=== PATIENT | female | born 1945 | race Caucasian/White ===

== ENCOUNTER 2018-04-01 19:06 | Emergency (ER) | payer MEDICARE, BC ==
[2018-04-01 19:34] VITALS: BP 144/82; PULSE 71; RESP 18; TEMP 98.5
[2018-04-01] MEDS ORDERED: DIPH,PERTUS(ACELL)TETVAC-LF 0.5 ML VIAL IM ONE (19:42)
[2018-04-01] MEDS ORDERED: LIDOCAINE 1% INJ 10MG/ML (20 ML MDV) SQ ONE (20:01)
--- NOTE | 2018-04-01 21:30 | ED ---
General Adult HPI - General Chief complaint: Wound/Laceration Stated complaint: Finger/Lac Time Seen by Provider: 04/01/18 19:39 Source: patient Mode of arrival: ambulatory Limitations: no limitations - History of Present Illness Initial comments: This a 72-year-old female past medical history of arthritis who presents today for chief complaint of laceration to the right middle finger on the dorsal side. Patient states that around 6 PM this evening she was opening a can when she went to move the can to prevent her 3-year-old grandson from being cut, she accidentally hit the backside of her right middle finger causing a small laceration. Patient was worried about her tetanus not beeing up to date, however she thought that the laceration itself superficial. Patient presented emergency department in stable condition. She denies any numbness, tingling, paresthesias, muscle weakness, loss of sensation, decreased range of motion of all 5 digits of the right hand. Patient denies any foreign body in laceration. Patient denies any recent fever, chills, shortness of breath, chest pain, back pain, abdominal pain, nausea or vomiting, numbness or tingling, dysuria or hematuria, constipation or diarrhea, headaches or visual changes, or any other complaints. - Related Data Allergies Allergy/AdvReac Type Severity Reaction Status Date / Time celecoxib [From Celebrex] AdvReac Nausea & Verified 04/01/18 19:34 Vomiting clarithromycin [From Biaxin] AdvReac Unknown Verified 04/01/18 19:34 meloxicam [From Mobic] AdvReac Nausea & Verified 04/01/18 19:34 Vomiting Review of Systems ROS Statement: Those systems with pertinent positive or pertinent negative responses have been documented in the HPI. ROS Other: All systems not noted in ROS Statement are negative. Constitutional: Denies: fever, chills Cardiovascular: Denies: chest pain, palpitations Endocrine: Denies: fatigue Gastrointestinal: Denies: abdominal pain, nausea, vomiting Genitourinary: Denies: urgency, dysuria Musculoskeletal: Reports: as per HPI. Denies: back pain Skin: Reports: as per HPI Neurological: Denies: weakness, numbness, paresthesias Past Medical History Past Medical History: No Reported History Additional Past Medical History / Comment(s): arthritis History of Any Multi-Drug Resistant Organisms: None Reported Past Surgical History: Appendectomy, Joint Replacement, Tonsillectomy, Tubal Ligation Additional Past Surgical History / Comment(s): benigh cyst removal from R breast. tan hip replacements., D&C, Past Psychological History: No Psychological Hx Reported Smoking Status: Never smoker Past Alcohol Use History: Rare Past Drug Use History: None Reported General Exam - General Exam Comments Initial Comments: General: The patient is awake and alert, in no distress, and does not appear acutely ill. Eye: Pupils are equal, round and reactive to light, extra-ocular movements are intact. No nystagmus. There is normal conjunctiva bilaterally. No signs of icterus. Ears, nose, mouth and throat: There are moist mucous membranes and no oral lesions. Neck: The neck is supple, there is no tenderness or JVD. Cardiovascular: There is a regular rate and rhythm. No murmur, rub or gallop is appreciated. Respiratory: Lungs are clear to auscultation, respirations are non-labored, breath sounds are equal. No wheezes, stridor, rales, or rhonchi. Gastrointestinal: [Soft, non-distended, non-tender abdomen without masses or organomegaly noted. There is no rebound or guarding present. No CVA tenderness. Bowel sounds are unremarkable.] Musculoskeletal: Normal ROM and 5/5 strength of MCP, PIP and DIP joints of the right hand. Sensation intact of right hand and all 5 digits b/l. Pulses equal bilaterally 2+ radial. <2 sec capillary refill. Neurological: A&O x 3. CN II-XII intact, There are no obvious motor or sensory deficits. Coordination appears grossly intact. Speech is normal. Skin: Skin is warm and dry and no rashes. 3/4cm laceration to the PIP joint of the right middle finger, it is superficial without exposure of underlying tendons or structures, no evidence of FB. Psychiatric: Cooperative, appropriate mood & affect, normal judgment. Limitations: no limitations Course Vital Signs 04/01/18 19:29 Temperature 98.5 F Pulse Rate 71 Respiratory 18 Rate Blood Pressure 144/82 O2 Sat by Pulse 96 Oximetry Procedures - Laceration Laceration #1 Consent Obtained: verbal consent Time Out Performed: Yes Site: hand (right dorsal middle finger, over PIP joint) Description: linear Depth: simple, single layer Anesthetic Used: lidocaine 1% Anesthesia Technique: local infiltration Amount (mls): 4 Pre-repair: wound explored, irrigated extensively, deep structures intact Type of Sutures: nylon Size of Sutures: 5-0 Number of Sutures: 2 Technique: simple, interrupted Patient Tolerated Procedure: well, no complications Medical Decision Making - Medical Decision Making Wound was extensively explored and irrigated. The wound was superficial and it was obvious that all underlying structures were intact, and there was no evidence of FB. 1% lidocaine was used to anesthetize the wound locally. The wound edges were approximated with 2 simple interrupted sutures, using 5.0 nylon. The wound was superficial and could've been approximated using skin glue however given the location over the PIP joint, I use suture placement to approximate the wound edges. Patient tolerated the procedure well. Case is discussed with Dr. Corrales in detail. Pt was educated on the signs of infection. Pt was told to f/u with PCP in 1-2days for wound check. Pt was instructed to return to the ED for suture removal in 10 days. Pt agreed with plan and was discharged in stable condition. Disposition Clinical Impression: Laceration, Laceration of finger Disposition: HOME SELF-CARE Condition: Good Instructions: Care For Your Stitches (ED), Finger Laceration (ED) Additional Instructions: Please use over the counter medication for pain as needed, as discussed. Please follow-up here in 10 days for suture removal. Please return to emergency room if the symptoms increase or worsen or for any other concerns. Is patient prescribed a controlled substance at d/c from ED?: No Referrals: Steve Hines MD [Primary Care Provider] - 1-2 days
== END 2018-04-01 21:43 | disposition home or self-care (01) ==
LOC: EC 19:06
DX: S61.212A Laceration without foreign body of right middle finger without damage to nail, initial encounter (principal); Z88.1 Allergy status to other antibiotic agents; Z88.6 Allergy status to analgesic agent; Z23 Encounter for immunization; W26.8XXA Contact with other sharp object(s), not elsewhere classified, initial encounter; Y93.89 Activity, other specified
CPT/HCPCS: 90715; 99282; 12001; 90471; J2001

== ENCOUNTER → 2018-07-15 | Outpatient (CLI) | payer MEDICARE, BC ==
--- NOTE | 2018-07-16 10:30 | MM ---
Reason for exam: screening (asymptomatic). Last mammogram was performed 1 year and 2 months ago. History: Patient is postmenopausal. Physical Findings: A clinical breast exam by your physician is recommended on an annual basis and results should be correlated with mammographic findings. MG 3D Screening Mammo W/Cad Bilateral CC and MLO view(s) were taken. Technologist: RT Micaela (R)(M) Prior study comparison: May 28, 2017, mammogram, performed at [facility]. February 17, 2016, mammogram, performed at [facility]. The breast tissue is extremely dense which could obscure a lesion on mammography. There are benign appearing round vasculr dystrophic calcifications bilaterally. There is no discrete abnormality. ASSESSMENT: Benign, BI-RAD 2 RECOMMENDATION: Routine screening mammogram of both breasts in 1 year.
== END | disposition home or self-care (01) ==
LOC: RADMAMWWP 08:41
PROVIDERS: ATTEND Obstetrics & Gynecology
DX: Z12.31 Encounter for screening mammogram for malignant neoplasm of breast (principal)
CPT/HCPCS: 77063; 77067

== ENCOUNTER → 2019-01-01 | Outpatient (CLI) | payer MEDICARE, BC ==
--- NOTE | 2019-01-01 15:21 | BD ---
EXAMINATION TYPE: Axial Bone Density DATE OF EXAM: 01/01/2019 COMPARISON: 10/23/2011 CLINICAL HISTORY: M81.0 Height: 62 IN Weight: 113 LBS RISK FACTORS HISTORY OF: Surgery to Hip([place]): [place] When: AGE 66 Active: YES Postmenopausal woman: AGE 47 MEDICATIONS: Additional Medications: CALCIUM, VIT D, GLUCOSAMINE CHONDROITIN, OMEGA 3 FISH OIL EXAM MEASUREMENTS: Bone mineral densitometry was performed using the [email or web address] System. Bone mineral density as measured about the Lumbar spine is: ----- L1-L4(G/cm2): 0.926 T Score Values are as follows: ----- L2: -2.6 ----- L3: -1.6 ----- L4: -1.7 ----- L1-L4: -2.1 Bone mineral density has: INCREASED 0.6% since study of: 10/23/2011 Bone mineral density about the L Wrist (g/cm2): 0.400 T Score values are as follows: -----Dist. R+U: -3.4 -----Prox. R+U: -4.2 -----Radius total: -4.6 Bone mineral density BASELINE IMPRESSION: Osteoporosis (T Score less than -2.5). There is increased fracture risk and therapy is usually indicated based on age. Re-Screen 1-2 years. NOTE: T-SCORE=SD OF THE YOUNG ADULT MEAN.
== END | disposition home or self-care (01) ==
LOC: RADBDWWP 09:30
PROVIDERS: ATTEND Family Medicine
DX: M81.0 Age-related osteoporosis without current pathological fracture (principal)
CPT/HCPCS: 77080

== ENCOUNTER 2019-01-17 09:55 | Day surgery (SDC) | payer MEDICARE, BC ==
[2019-01-15 13:16] VITALS: BMI 20.1
--- NOTE | 2019-01-16 20:34 | P.GSHP ---
History of Present Illness H&P Date: 01/17/19 CHIEF COMPLAINT: Colon screen HISTORY OF PRESENT ILLNESS: The patient is a 73-year-old female who presents for colon screen. Lower endoscopy was offered for further evaluation and management. PAST MEDICAL HISTORY: Please see list. PAST SURGICAL HISTORY: Please see list. MEDICATIONS: Please see list. ALLERGIES: Please see list. SOCIAL HISTORY: No illicit drug use FAMILY HISTORY: No reports of Crohn disease or ulcerative colitis. REVIEW OF ORGAN SYSTEMS: CONSTITUTIONAL: No reports of fevers or chills. PHYSICAL EXAM: VITAL SIGNS: Stable GENERAL: Well-developed pleasant in no acute distress. HEENT: No scleral icterus. Extraocular movements grossly intact. Moist buccal mucosa. NECK: Supple without lymphadenopathy. CHEST: Unlabored respirations. Equal bilateral excursions. CARDIOVASCULAR: Regular rate and rhythm. Distal 2+ pulses. ABDOMEN: Soft, nontender, nondistended. MUSCULOSKELETAL: No clubbing, cyanosis, or edema. ASSESSMENT: 1. Colon screen. PLAN: 1. 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 tan hip replacements., D&C, colonoscopies Past Anesthesia/Blood Transfusion Reactions: No Reported Reaction Smoking Status: Never smoker - Past Family History Mother Family Medical History: Cancer Medications and Allergies Home Medications Medication Instructions Recorded Confirmed Type Betamethasone Dipropionate 1 applic TOPICAL DAILY 01/15/19 01/15/19 History [Diprolene AF 0.05% Cream] Calcium Carbonate [Calcium] 600 mg PO DAILY 01/15/19 01/15/19 History Glucosam/Carter-Msm1/C/Amando/Bosw 1 each PO DAILY 01/15/19 01/15/19 History [Glucosamine-Chondroitin Tablet] Multivitamins, Thera [Multivitamin 1 tab PO DAILY 01/15/19 01/15/19 History (formulary)] [place]-3 Fatty Acids/Fish Oil 1 each PO DAILY 01/15/19 01/15/19 History [[place]-3 Fish Oil 1,200 mg Sfgl] Omeprazole 20 mg PO DAILY PRN 01/15/19 01/15/19 History Sodium Chloride 5% Ophth Soln 1 drops BOTH EYES DAILY 01/15/19 01/15/19 History [Reji 128] Allergies Allergy/AdvReac Type Severity Reaction Status Date / Time celecoxib [From Celebrex] AdvReac Nausea & Verified 01/15/19 12:01 Vomiting clarithromycin [From Biaxin] AdvReac Unknown Verified 01/15/19 12:01 meloxicam [From Mobic] AdvReac Nausea & Verified 01/15/19 12:01 Vomiting
[~2019-01-17 09:55] MED LIST: LACTATED RINGERS 1,000 ML IV SCH; LIDOCAINE 1% 20 ML VIAL (10MG/ML) FOR IV START INTRADERMA PRN
[2019-01-17 10:17] VITALS: TEMP 98.2
[2019-01-17] MEDS ORDERED: PROPOFOL 10 MG/ML 20 ML VIAL IV ONE (11:15)
--- NOTE | 2019-01-17 11:51 | P.PCN ---
Date of Procedure: 01/17/19 Description of Procedure: PREOPERATIVE DIAGNOSIS: Colonoscopy screening. Family history colon cancer, mother POSTOPERATIVE DIAGNOSIS: Colonoscopy screening. Family history colon cancer, mother OPERATION: Colonoscopy to the ileocecal valve and appendiceal orifice. SURGEON: Suri Horn MD. ANESTHESIA: MAC. INDICATIONS: The patient is a 73-year-old female who presents for colonoscopy screening. Last colonoscopy over 5 years ago. Benefits and risks were described and informed consent was obtained. DESCRIPTION OF PROCEDURE: The patient had undergone Suprep. She had been brought into the operating room and laid in the left lateral decubitus position. After adequate intravenous sedation, the rectum was examined with 2% lidocaine jelly. No external hemorrhoids were encountered. The rectal tone was within normal limits. No lesions were palpated in the rectal vault. An Olympus colonoscope was advanced until the ileocecal valve and appendiceal orifice were clearly viewed. Her sigmoid colon was highly redundant requiring abdominal wall pressure. The prep was excellent with clear visualization of the mucosal folds. The scope was removed with visualization of each mucosal fold. No scattered diverticulosis was encountered. No colonic polyps were found. No evidence of focal colitis was found. Retroflexion of the scope demonstrated no internal hemorrhoids. The colon was desufflated. The patient had tolerated the procedure well. Withdrawal time was over 6 minutes. FINDINGS: Aronchick preparation quality scale 2 (1-5) No internal hemorrhoids No external prolapsed hemorrhoids. No arteriovenous malformations. No adenomatous polyps. No focal colitis. RECOMMENDATIONS: Lower endoscopy or Cologaurd in 5 years, 2023 Plan - Discharge Summary Discharge Rx Participant: No New Discharge Prescriptions: No Action Betamethasone Dipropionate [Diprolene AF 0.05% Cream] 1 applic TOPICAL DAILY Multivitamins, Thera [Multivitamin (formulary)] 1 tab PO DAILY Sodium Chloride 5% Ophth Soln [Reji 128] 1 drops BOTH EYES DAILY Omeprazole 20 mg PO DAILY PRN PRN Reason: Heartburn [place]-3 Fatty Acids/Fish Oil [[place]-3 Fish Oil 1,200 mg Sfgl] 1 each PO DAILY Glucosam/Carter-Msm1/C/Amando/Bosw [Glucosamine-Chondroitin Tablet] 1 each PO DAILY Calcium Carbonate [Calcium] 600 mg PO DAILY Discharge Medication List Betamethasone Dipropionate [Diprolene AF 0.05% Cream] 1 applic TOPICAL DAILY 01/15/19 [History] Calcium Carbonate [Calcium] 600 mg PO DAILY 01/15/19 [History] Glucosam/Carter-Msm1/C/Amando/Bosw [Glucosamine-Chondroitin Tablet] 1 each PO DAILY 01/15/19 [History] Multivitamins, Thera [Multivitamin (formulary)] 1 tab PO DAILY 01/15/19 [History] [place]-3 Fatty Acids/Fish Oil [[place]-3 Fish Oil 1,200 mg Sfgl] 1 each PO DAILY 01/15/19 [History] Omeprazole 20 mg PO DAILY PRN 01/15/19 [History] Sodium Chloride 5% Ophth Soln [Reji 128] 1 drops BOTH EYES DAILY 01/15/19 [History] Follow up Appointment(s)/Referral(s): Suri Horn MD [STAFF PHYSICIAN] - As Needed Patient Instructions/Handouts: *Surgery [facility] - (Anesthesia) Endoscopy Discharge Instructions Activity/Diet/Wound Care/Special Instructions: Repeat colonoscopy 5 years, 2023 Discharge Disposition: HOME SELF-CARE
[2019-01-17 11:53] VITALS: RESP 18
[2019-01-17 12:19] VITALS: BP 126/81; PULSE 65
== END 2019-01-17 12:41 | disposition home or self-care (01) ==
LOC: ORWHC2ENDO 09:55
PROVIDERS: ATTEND Surgery Plastic and Reconstructive Surgery
DX: Z12.11 Encounter for screening for malignant neoplasm of colon (principal); Q43.8 Other specified congenital malformations of intestine; Z80.0 Family history of malignant neoplasm of digestive organs; K21.9 Gastro-esophageal reflux disease without esophagitis; M19.90 Unspecified osteoarthritis, unspecified site; H18.51 Endothelial corneal dystrophy; Z79.899 Other long term (current) drug therapy; Z88.6 Allergy status to analgesic agent; Z88.1 Allergy status to other antibiotic agents; Z96.643 Presence of artificial hip joint, bilateral; Z98.51 Tubal ligation status
CPT/HCPCS: J2704; G0105

== ENCOUNTER → 2019-07-31 | Outpatient (CLI) | payer MEDICARE, BC ==
--- NOTE | 2019-08-04 09:36 | MM ---
Reason for exam: screening (asymptomatic). Last mammogram was performed 1 year and 1 month ago. History: Patient is postmenopausal. Physical Findings: A clinical breast exam by your physician is recommended on an annual basis and results should be correlated with mammographic findings. MG 3D Screening Mammo W/Cad Bilateral CC and MLO view(s) were taken. Prior study comparison: July 15, 2018, bilateral MG 3d screening mammo w/cad. May 28, 2017, mammogram, performed at [facility]. The breast tissue is heterogeneously dense. This may lower the sensitivity of mammography. Stable benign calcifications. There is no discrete abnormality. No significant changes when compared with prior studies. ASSESSMENT: Benign, BI-RAD 2 RECOMMENDATION: Routine screening mammogram of both breasts in 1 year.
== END | disposition home or self-care (01) ==
LOC: RADMAMWWP 09:20
PROVIDERS: ATTEND Family Medicine
DX: Z12.31 Encounter for screening mammogram for malignant neoplasm of breast (principal)
CPT/HCPCS: 77063; 77067

== ENCOUNTER → 2021-04-29 | Outpatient (CLI) | payer MEDICARE, BC ==
--- NOTE | 2021-04-29 08:57 | US ---
EXAMINATION TYPE: US abdomen complete DATE OF EXAM: 04/29/2021 COMPARISON: NONE CLINICAL HISTORY: R10.13 Epigastric pain. Intermittent epigastric pain x couple months EXAM MEASUREMENTS: Liver Length: 12.4 cm Gallbladder Wall: 0.2 cm CBD: 0.2 cm Spleen: 8.5 cm Right Kidney: 9.1 x 4.0 x 4.9 cm Left Kidney: 9.1 x 4.6 x 4.1 cm Pancreas: wnl Liver: wnl Gallbladder: wnl Evidence for sonographic Fitch's sign: no CBD: wnl Spleen: wnl Right Kidney: 0.9cm cyst Left Kidney: wnl Upper IVC: wnl Abd Aorta: wnl The liver is homogenous. The intrahepatic portion of the IVC and proximal abdominal aorta are within normal limits. There is no evidence of cholelithiasis. Common bile duct is unremarkable. The visu alized portions of the pancreas are homogenous. The spleen is unremarkable. Kidneys are symmetric a nd free of hydronephrosis. Incidental subcentimeter thin-walled cyst upper pole of the right kidney n ear the hepatic margin. IMPRESSION: No acute findings are evident.
== END | disposition home or self-care (01) ==
LOC: RADUSWWP 08:03
PROVIDERS: ATTEND Family Medicine
DX: N28.1 Cyst of kidney, acquired (principal)
CPT/HCPCS: 76700

== ENCOUNTER → 2021-05-20 | Outpatient (CLI) | payer MEDICARE, BC ==
[2021-05-20 12:03] LABS: ALT 22 U/L (4-34); AST 41 U/L (14-36); African American GFR (CKD) >90 (>60 ml/min/1.73 sqM); Alkaline Phosphatase 90 U/L (38-126); Anion Gap 5 mmol/L; Blood Urea Nitrogen 18 mg/dL (7-17); Calcium 9.7 mg/dL (8.4-10.2); Carbon Dioxide 30 mmol/L (22-30); Chloride 103 mmol/L (98-107); Glucose 99 mg/dL (74-99); Non-African American GFR(CKD) 89 (>60 ml/min/1.73 sqM); Potassium 4.5 mmol/L (3.5-5.1); Sodium 138 mmol/L (137-145); Total Bilirubin 0.7 mg/dL (0.2-1.3); Total Protein 7.1 g/dL (6.3-8.2)
--- NOTE | 2021-05-20 14:45 | CT ---
EXAMINATION TYPE: CT abdomen w con DATE OF EXAM: 05/20/2021 COMPARISON: none HISTORY: R10.13 epigastric pain CONTRAST: CT scan of the abdomen is performed with Oral Contrast and with IV Contrast, patient injected with 10 0 mL of Isovue 300. FINDINGS: LUNG BASES-: No visible nodule. No infiltrate. LIVER/GB: No calcified gallstones. No space occupying hepatic lesion. Biliary tree is of normal ca liber. PANCREAS: No inflammation. No distinct mass. SPLEEN: No splenic enlargement. No lesion seen. ADRENALS: No nodule. No thickening. KIDNEYS/BLADDER: No hydronephrosis. No nephrolithiasis. No distinct renal mass. Urinary bladder g rossly unremarkable. BOWEL: Normal bowel caliber. No inflammation. LYMPH NODES: No greater than 1cm abdominal or pelvic lymph nodes are appreciated. AORTA: No significant abnormality. OSSEOUS STRUCTURES: No significant abnormality is seen. OTHER: No significant additional abnormality is seen. IMPRESSION: 1. No distinct abnormality seen.
== END | disposition home or self-care (01) ==
LOC: RADCTMAIN 11:04
PROVIDERS: ATTEND Family Medicine
DX: R10.13 Epigastric pain (principal)
CPT/HCPCS: 74160; 80053

== ENCOUNTER 2022-04-25 15:04 | Emergency (ER) | payer MEDICARE, BC ==
[2022-04-25 15:41] VITALS: BP 134/73; PULSE 82; RESP 16; TEMP 98.3
[2022-04-25] MEDS ORDERED: FLUORESCEIN STRIPS 1 MG STRIP LEFT EYE ONE (16:02)
[2022-04-25] MEDS ORDERED: PROPARACAINE 0.5% OPHTH DROPS 15 ML BTL LEFT EYE STA (16:02)
--- NOTE | 2022-04-25 16:10 | ED ---
Eye Problem HPI - General Chief complaint: Eye Problems Stated complaint: Eye Irritation Time Seen by Provider: 04/25/22 15:58 Source: patient, RN notes reviewed Mode of arrival: ambulatory Limitations: no limitations - History of Present Illness Initial comments: This is a 76-year-old female who presents to the emergency department for left eye pain. Patient states that starting last night, she began to develop irritation and redness on the left aspect of the left eye. She has minor associated photophobia and minimal blurring of her vision. Denies a foreign body sensation. Denies injuring her eye in any way. States that it just feels painful. She has used her Visine eyedrops with no relief. She does have a history of allergic conjunctivitis, but states that this is not similar. Denies any drainage or discharge from the eye. Denies any fevers, chills, sore throat, cough, dyspnea, chest pain, palpitations, abdominal pain, nausea, vomiting, diarrhea, back pain, or headaches. MD chief complaint: eye pain, eye redness Onset/Timin -: days(s) Location: left eye Place: home Eye Symptoms: redness, pain, blurry vision, photophobia Associated Symptoms: none Treatments Prior to Arrival: OTC eye drops - Related Data Home Medications Medication Instructions Recorded Confirmed Betamethasone Dipropionate 1 applic TOPICAL DAILY 01/15/19 01/17/19 [Diprolene AF 0.05% Cream] Calcium Carbonate [Calcium] 600 mg PO DAILY 01/15/19 01/17/19 Glucosam/Carter-Msm1/C/Amando/Bosw 1 each PO DAILY 01/15/19 01/17/19 [Glucosamine-Chondroitin Tablet] Multivitamins, Thera [Multivitamin 1 tab PO DAILY 01/15/19 01/17/19 (formulary)] [place]-3 Fatty Acids/Fish Oil 1 each PO DAILY 01/15/19 01/17/19 [[place]-3 Fish Oil 1,200 mg Sfgl] Omeprazole 20 mg PO DAILY PRN 01/15/19 01/17/19 Sodium Chloride 5% Ophth Soln 1 drops BOTH EYES DAILY 01/15/19 01/17/19 [Reji 128] Allergies Allergy/AdvReac Type Severity Reaction Status Date / Time celecoxib [From Celebrex] AdvReac Nausea & Verified 04/25/22 15:41 Vomiting clarithromycin [From Biaxin] AdvReac Unknown Verified 04/25/22 15:41 meloxicam [From Mobic] AdvReac Nausea & Verified 04/25/22 15:41 Vomiting Review of Systems ROS Statement: Those systems with pertinent positive or pertinent negative responses have been documented in the HPI. ROS Other: All systems not noted in ROS Statement are negative. 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 tan hip replacements., D&C, colonoscopies Past Anesthesia/Blood Transfusion Reactions: No Reported Reaction Past Psychological History: No Psychological Hx Reported Past Alcohol Use History: Rare Past Drug Use History: None Reported - Past Family History Mother Family Medical History: Cancer General Exam Limitations: no limitations General appearance: alert, in no apparent distress Head exam: Present: atraumatic, normocephalic, normal inspection Eye exam: Present: PERRL, EOMI, other (Conjunctival injection on the lateral aspect of the left eye. No crusting of the lashes. No discharge or drainage. No periorbital swelling or tenderness. No rust ring.) Pupils: Present: normal accommodation ENT exam: Present: normal exam, normal oropharynx Respiratory exam: Present: normal lung sounds bilaterally. Absent: respiratory distress, wheezes, rales, rhonchi, stridor Cardiovascular Exam: Present: regular rate, normal rhythm, normal heart sounds. Absent: systolic murmur, diastolic murmur, rubs, gallop, clicks Neurological exam: Present: alert, oriented X3, CN II-XII intact Psychiatric exam: Present: normal affect, normal mood Skin exam: Present: warm, dry, intact, normal color. Absent: rash Course Vital Signs 04/25/22 15:38 Temperature 98.3 F Pulse Rate 82 Respiratory 16 Rate Blood Pressure 134/73 O2 Sat by Pulse 98 Oximetry Medical Decision Making - Medical Decision Making This is a 76-year-old female who presents to the emergency department for left eye pain. Fluorescein staining reveals a left lateral corneal abrasion. Prescription for sulfacetamide eyedrops provided to be used for 5 days. This was brought to her in the emergency department, as opposed to being sent to her pharmacy per the patient's request. Instructed her to follow-up with her freight car repairer at [facility] in the next couple of days and to alternate with ibuprofen and Tylenol as needed for pain relief. Return precautions reviewed in depth, the patient is instructed to return to the emergency department with any new, worsening, or concerning symptoms. Patient verbalized understanding. This case was discussed in detail with the attending ED physician. Presentation, findings, and treatment plan discussed in detail as well. Disposition Clinical Impression: Corneal abrasion, left Disposition: HOME SELF-CARE Instructions (If sedation given, give patient instructions): Corneal Abrasion (ED) Additional Instructions: Return to the emergency department with any new, worsening, or concerning sympto ms. Use the eye drops as 2 drops in the left eye 4 times daily for 5 days. Follow-up with your freight car repairer in the next couple of days for reevaluation. Alternate with ibuprofen and Tylenol as needed for pain relief. Is patient prescribed a controlled substance at d/c from ED?: No Referrals: Shayne Rudolph, [Primary Care Provider] - 1-2 days
[2022-04-25] MEDS ORDERED: SULFACETAMIDE SOD 10% OPHTH DROPS 15 ML BTL LEFT EYE SCH (18:00)
== END 2022-04-25 17:03 | disposition home or self-care (01) ==
LOC: EC 15:04
DX: S05.02XA Injury of conjunctiva and corneal abrasion without foreign body, left eye, initial encounter (principal); K21.9 Gastro-esophageal reflux disease without esophagitis; M19.90 Unspecified osteoarthritis, unspecified site; Z79.899 Other long term (current) drug therapy; Z88.6 Allergy status to analgesic agent; Z88.1 Allergy status to other antibiotic agents; X58.XXXA Exposure to other specified factors, initial encounter
CPT/HCPCS: 99283

== ENCOUNTER 2024-10-29 08:49 | Day surgery (SDC) | payer MEDICARE, BC ==
[2024-10-28 08:37] VITALS: BMI 19.1
--- NOTE | 2024-10-29 09:06 | P.GSHP ---
History of Present Illness H&P Date: 10/29/24 CHIEF COMPLAINT: Colon screen HISTORY OF PRESENT ILLNESS: The patient is a 79-year-old female who presents for colon screen. Lower endoscopy was offered for further evaluation and management. PAST MEDICAL HISTORY: Please see list. PAST SURGICAL HISTORY: Please see list. MEDICATIONS: Please see list. ALLERGIES: Please see list. SOCIAL HISTORY: No illicit drug use FAMILY HISTORY: No reports of Crohn disease or ulcerative colitis. REVIEW OF ORGAN SYSTEMS: CONSTITUTIONAL: No reports of fevers or chills. PHYSICAL EXAM: VITAL SIGNS: Stable GENERAL: Well-developed pleasant in no acute distress. HEENT: No scleral icterus. Extraocular movements grossly intact. Moist buccal mucosa. NECK: Supple without lymphadenopathy. CHEST: Unlabored respirations. Equal bilateral excursions. CARDIOVASCULAR: Regular rate and rhythm. Distal 2+ pulses. ABDOMEN: Soft, nontender, nondistended. MUSCULOSKELETAL: No clubbing, cyanosis, or edema. ASSESSMENT: 1. Colon screen. PLAN: 1. Recommend proceeding with a lower endoscopy Past Medical History Past Medical History: Eye Disorder, GERD/Reflux, Osteoarthritis (OA) Additional Past Medical History / Comment(s): family hx. colon cancer, Fuch's dystrophy, cataracts. History of Any Multi-Drug Resistant Organisms: None Reported Past Surgical History: Appendectomy, Breast Surgery, Joint Replacement, Tonsillectomy, Tubal Ligation Additional Past Surgical History / Comment(s): benign cyst removal from R breast. tan hip replacements., D&C, colonoscopies, oral surgery to remove cyst from jaw line, bilateral cataracts removal 2023 Past Anesthesia/Blood Transfusion Reactions: No Reported Reaction Smoking Status: Never smoker - Past Family History Mother Family Medical History: Cancer Son(s) Family Medical History: Cancer Additional Family Medical History / Comment(s): Colon CA- Medications and Allergies Home Medications Medication Instructions Recorded Confirmed Type Calcium Carbonate [Calcium] 600 mg PO DAILY 01/15/19 10/28/24 History Glucosam/Carter-Msm1/C/Amando/Bosw 1 each PO DAILY 01/15/19 10/28/24 History [Glucosamine-Chondroitin Tablet] Multivitamins, Thera [Multivitamin 1 tab PO DAILY 01/15/19 10/28/24 History (formulary)] Belt-3 Fatty Acids/Fish Oil 1 each PO DAILY 01/15/19 10/28/24 History [Belt-3 Fish Oil 1,200 mg Sfgl] Sodium Chloride 5% Ophth Soln 1 drops BOTH EYES QID 01/15/19 10/28/24 History [Reji 128] Magnesium 200 mg PO DAILY 10/28/24 10/28/24 History Allergies Allergy/AdvReac Type Severity Reaction Status Date / Time celecoxib [From Celebrex] AdvReac Nausea & Verified 10/29/24 09:03 Vomiting clarithromycin [From Biaxin] AdvReac Unknown Verified 10/29/24 09:03 meloxicam [From Mobic] AdvReac Nausea & Verified 10/29/24 09:03 Vomiting
[2024-10-29 09:09] VITALS: RESP 16; TEMP 98.3
[2024-10-29] MEDS: LACTATED RINGERS 1,000 ML IV SCH (09:11)
[2024-10-29] MEDS: LIDOCAINE 1% (10MG/ML) FOR IV START INTRADERMA STA (09:12)
[2024-10-29] MEDS: IV FLUID CONTINUATION 1,000 ML IV ONE (09:12)
[2024-10-29] MEDS ORDERED: LIDOCAINE 1% INJ 10MG/ML (20 ML MDV) ONE (09:50)
[2024-10-29] MEDS ORDERED: PROPOFOL 10 MG/ML 20 ML VIAL IV ONE (09:50)
--- NOTE | 2024-10-29 10:32 | P.PCN ---
Date of Procedure: 10/29/24 Description of Procedure: PREOPERATIVE DIAGNOSIS: Family history colon cancer, mother, son Colonoscopy screening. POSTOPERATIVE DIAGNOSIS: Colonoscopy screening. Diverticulosis, scattered. OPERATION: Colonoscopy to the cecum, ileocecal valve and appendiceal orifice. SURGEON: Suri Horn MD. ANESTHESIA: MAC. INDICATIONS: The patient is a 79-year-old female who presents for colonoscopy screening. Last colonoscopy 5 years ago. Benefits and risks were described and informed consent was obtained. DESCRIPTION OF PROCEDURE: The patient had undergone GoLytely prep. The patient had been brought into the operating room and laid in the left lateral decubitus position. After adequate intravenous sedation, the rectum was examined with 2% lidocaine jelly. External hemorrhoids were encountered. The rectal tone was within normal limits. No lesions were palpated in the rectal vault. An Olympus colonoscope was advanced until the cecum, ileocecal valve and appendiceal orifice were clearly viewed. The prep was good. Few sigmoid scattered diverticulosis was encountered. No colonic polyps were found. No evidence of focal colitis was found. Retroflexion of the scope demonstrated grade 2 internal hemorrhoids without active bleeding or inflammation. The colon was desufflated. The patient had tolerated the procedure well. Withdrawal time was over 6 minutes. FINDINGS: Aronchick preparation quality scale 2 (1-5) Internal hemorrhoids, grade 2 External prolapsed hemorrhoids, grade 2 Redundant sigmoid colon with few scattered diverticulosis No arteriovenous malformations. No adenomatous polyps. No focal colitis. RECOMMENDATIONS: Lower endoscopy in 5 years2029 Plan - Discharge Summary Discharge Rx Participant: No New Discharge Prescriptions: Continue Multivitamins, Thera [Multivitamin (formulary)] 1 tab PO DAILY Sodium Chloride 5% Ophth Soln [Reji 128] 1 drops BOTH EYES QID [place]-3 Fatty Acids/Fish Oil [[place]-3 Fish Oil 1,200 mg Sfgl] 1 each PO DAILY Glucosam/Carter-Msm1/C/Amando/Bosw [Glucosamine-Chondroitin Tablet] 1 each PO DAILY Calcium Carbonate [Calcium] 600 mg PO DAILY Magnesium 200 mg PO DAILY Discharge Medication List Calcium Carbonate [Calcium] 600 mg PO DAILY 01/15/19 [History] Glucosam/Carter-Msm1/C/Amando/Bosw [Glucosamine-Chondroitin Tablet] 1 each PO DAILY 01/15/19 [History] Multivitamins, Thera [Multivitamin (formulary)] 1 tab PO DAILY 01/15/19 [History] [place]-3 Fatty Acids/Fish Oil [[place]-3 Fish Oil 1,200 mg Sfgl] 1 each PO DAILY 01/15/19 [History] Sodium Chloride 5% Ophth Soln [Reji 128] 1 drops BOTH EYES QID 01/15/19 [History] Magnesium 200 mg PO DAILY 10/28/24 [History] Follow up Appointment(s)/Referral(s): Suri Horn MD [STAFF PHYSICIAN] - As Needed Patient Instructions/Handouts: Diverticulosis Diet (GEN), Diverticulosis (DC) Activity/Diet/Wound Care/Special Instructions: Repeat colonoscopy in 5 years, 2030 Discharge Disposition: HOME SELF-CARE
[2024-10-29 10:42] VITALS: BP 134/69; PULSE 78
== END 2024-10-29 11:54 | disposition home or self-care (01) ==
LOC: ORWHC2ENDO 08:49
PROVIDERS: ATTEND Surgery Plastic and Reconstructive Surgery
DX: Z12.11 Encounter for screening for malignant neoplasm of colon (principal); K57.30 Diverticulosis of large intestine without perforation or abscess without bleeding; K63.89 Other specified diseases of intestine; K64.1 Second degree hemorrhoids; K64.4 Residual hemorrhoidal skin tags; Z80.0 Family history of malignant neoplasm of digestive organs; K21.9 Gastro-esophageal reflux disease without esophagitis; M19.90 Unspecified osteoarthritis, unspecified site; H18.519 Endothelial corneal dystrophy, unspecified eye; Z79.899 Other long term (current) drug therapy; Z98.41 Cataract extraction status, right eye; Z98.42 Cataract extraction status, left eye; Z96.1 Presence of intraocular lens; Z98.890 Other specified postprocedural states; Z98.51 Tubal ligation status; Z96.643 Presence of artificial hip joint, bilateral; Z90.89 Acquired absence of other organs; Z88.6 Allergy status to analgesic agent; Z88.1 Allergy status to other antibiotic agents; Z90.49 Acquired absence of other specified parts of digestive tract
CPT/HCPCS: J2003; J2704; G0105; 45378